=== PATIENT | female | born 1950 | race Caucasian/White ===

== ENCOUNTER → 2016-02-26 | Outpatient (CLI) | payer OTHER, MEDICARE ==
--- NOTE | 2016-02-26 18:00 | DX ---
DEXA Bone Mineral Densitometry Screening Clinical Indications: Vitamin D deficiency. Possible age related osteoporosis (E 55.9, M 81.0) on th e questionnaire, the patient also reports family history of osteoporosis. She takes supplemental calc ium of 300-500 mg per day along with vitamin D supplement. She exercises regularly. Comparison: January 08, 2014 Technique: Bone Mineral Densitometry (BMD) by Dual Energy X-Ray Absorptiometry (DEXA) was performed utilizing the [employer] scanner. The lumbar spine was evaluated in the AP projection. The bilat eral hips and left forearm were evaluated in the AP projection. Vertebral fracture assessment was als o performed. AP Lumbar Spine: The L1, L2, L3 and L4 vertebral bodies are evaluated. BMD: 0.757 gm/cm2 T-score: -3.5 SD Z-score: -2.0 SD Since the previous study, there has been no significant change. AP Left Hip: BMD: 0.751 gm/cm2 T-score: -2.0 SD Z-score: -0.9 SD Since the previous study, there has been no significant change. AP Right Hip: BMD: 0.738 gm/cm2 T-score: -2.1 SD Z-score: -1.0 SD Since the previous study, there has been there has been mild to moderate decrease in bone mineral den sity by 6.9%. AP Left Forearm: BMD: 0.544 gm/cm2 T-score: -3.8 SD Z-score: -2.4 SD Since the previous study, there has been significant decrease in bone mineral density by 10.2%. Vertebral Fracture Assessment: No significant fracture deformity. The ten year risk for any major osteoporotic fracture is 20.2% and for a hip fracture is 2.0%. Conclusion: Considering the lowest measured site, the patient is osteoporotic with the greatest degre e in the forearm. Any bone loss in this patient is probably related to aging or estrogen deficiency. Preferential bone loss in the forearm does raise the possibility of underlying hyperparathyroidism. Additionally, there has been significant decrease in bone mineral density since the prior study of t he right hip and left forearm. Recommendations: To prevent osteoporosis and to promote bone density, consider the followin. Consider checking patient's PTH and serum calcium and phosphorus levels for possible hyperparathyr oidism. 2. Pursue a regular regimen of weightbearing and muscle-strengthening exercises in order to reduce th e risk of falls and fracture (as tolerated by the patient's general medical condition). 3. Ensure that total daily calcium intake is at least 1500 mg (diet more important than supplements). 4. Check serum hydroxy vitamin D3 (normal >30ng/ml). 5. Ensure daily intake of vitamin D at least 800 international units. 6. Consider follow up DEXA scan in two years to assess the rate of bone loss in this patient. 7. If secondary causes are excluded, then consider initiating treatment with a bisphosphonate (such a s Fosamax, Actonel or Boniva). If the patient is unable to use an oral bisphosphonate, another agent such as IV bisphosphonates (Boniva or Reclast), teriparatide (Forteo), or a selective estrogen recept or modulator (Evista) might be considered.
== END ==
LOC: FIMAGING 14:44
PROVIDERS: ATTEND Internal Medicine
DX: Z13.820 Encounter for screening for osteoporosis (principal); M81.0 Age-related osteoporosis without current pathological fracture; Z82.62 Family history of osteoporosis

== ENCOUNTER → 2016-05-27 | Outpatient (CLI) | payer OTHER, MEDICARE | LOC: FIMAGING 15:51 | PROVIDERS: ATTEND Nurse Practitioner Family | DX: J20.9 Acute bronchitis, unspecified (principal) ==

== ENCOUNTER 2016-10-25 10:51 | Emergency (ER) | payer OTHER, MEDICARE ==
[2016-10-25 11:01] VITALS: RESP 18; TEMP 98.4
[2016-10-25 11:38] LABS: % IMMATURE GRANULYOCYTES 0.2 % (0.0-1.1); ABSOLUTE IMMATURE GRANULOCYTES 0.01 10^3/uL (0.00-0.10); ADD DIFF? NO; ADD MORPH? NO; ADD SCAN? NO; ATYPICAL LYMPHOCYTE FLAG 10 (0-99); FRAGMENT RBC FLAG 0 (0-99); HEMATOCRIT 45.4 % (38.0-47.0); HEMOGLOBIN 15.2 g/dL (12.6-16.3); LEFT SHIFT FLG 0 (0-99); LIPEMIA HEMOLYSIS FLAG 80 (0-99); MEAN CELL HEMOGLOBIN 30.8 pg (27.9-34.1); MEAN CELL HEMOGLOBIN CONCENTR. 33.5 g/dL (32.4-36.7); MEAN CELL VOLUME 92.1 fL (81.5-99.8); MEAN PLATELET VOLUME 10.2 fL (8.7-11.7); PLATELET CLUMPS FLAG 10 (0-99); PLATELET COUNT 248 10^3/uL (150-400); RED BLOOD CELL COUNT 4.93 10^6/uL (4.18-5.33); RED CELL DISTRIBUTION WIDTH 13.2 % (11.5-15.2)
[2016-10-25 11:45] LABS: ANION GAP 12 mEq/L (8-16); CALCIUM 10.4 mg/dL (8.5-10.4); CARBON DIOXIDE 25 mEq/l (22-31); CHLORIDE 101 mEq/L (97-110); CREATININE 0.7 mg/dL (0.6-1.0); GLOMERULAR FILTRATION RATE > 60; GLUCOSE 96 mg/dL (70-100); POTASSIUM 3.7 mEq/L (3.5-5.2); SODIUM 138 mEq/L (134-144)
[2016-10-25 11:55] LABS: TROPONIN I < 0.012 ng/mL (0.000-0.034)
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
--- NOTE | 2016-10-25 12:21 | CPEKG ---
Heart Rate: 68 RR Interval: 882 P-R Interval: 128 QRSD Interval: 90 QT Interval: 404 QTC Interval: 430 P [place]: 46 QRS [place]: 80 T Wave [place]: 22 EKG Severity - NORMAL ECG - EKG Impression: SINUS RHYTHM Electronically Signed By: Franklin Cloud 25-Oct-2016 12:25:12
[2016-10-25 13:48] VITALS: BP 109/73; PULSE 60; O2SAT 98
== END 2016-10-25 14:04 | disposition home or self-care (01) ==
DX: R20.2 Paresthesia of skin (principal)

== ENCOUNTER → 2016-12-29 | Outpatient (CLI) | payer OTHER, MEDICARE | LOC: BMCIMAGING 14:53 | PROVIDERS: ATTEND Internal Medicine | DX: Z12.31 Encounter for screening mammogram for malignant neoplasm of breast (principal) | CPT/HCPCS: G0202 ==

== ENCOUNTER → 2017-01-02 | Outpatient (CLI) | payer OTHER, MEDICARE | LOC: BMCIMAGING 16:33 | PROVIDERS: ATTEND Internal Medicine | DX: R07.81 Pleurodynia (principal) | CPT/HCPCS: 71101-PO ==

== ENCOUNTER 2017-02-05 09:12 | Emergency (ER) | payer OTHER, MEDICARE ==
[2017-02-05 09:18] VITALS: RESP 18; TEMP 98.1
--- NOTE | 2017-02-05 09:23 | EDPHY ---
H & P Stated Complaint: Twinging in R breast/chest area since yesterday Time Seen by Provider: 02/05/17 09:19 - Personal History Current Tetanus Diphtheria and Acellular Pertussis (TDAP): Yes - Medical/Surgical History Hx Asthma: No Hx Chronic Respiratory Disease: No Hx Diabetes: No Hx Cardiac Disease: No Hx Renal Disease: No Hx Cirrhosis: No Hx Alcoholism: No Hx HIV/AIDS: No Hx Splenectomy or Spleen Trauma: No Other PMH: TBI/neurologic issues in l leg/thigh/neck and back issues - Social History Smoking Status: Never smoked Constitutional: Initial Vital Signs Temperature (C) 36.7 C 02/05/17 09:13 Heart Rate 77 02/05/17 09:13 Respiratory Rate 18 02/05/17 09:13 Blood Pressure 132/78 H 02/05/17 09:13 O2 Sat (%) 98 02/05/17 09:13 O2 Delivery Mode Room Air Allergies/Adverse Reactions: prednisone Allergy (Mild, Verified 02/05/17 09:17) anxiety/insomnia Home Medications: Medication Instructions Recorded NK [No Known Home Meds] 10/25/16 Medical Decision Making - Diagnostics Imaging: I viewed and interpreted images myself ED Course/Re-evaluation: CHIEF COMPLAINT: Chest pain HISTORY OF PRESENT ILLNESS: The patient is a 66-year-old female presenting with dull chest pressure localized to the right side. The patient ate food yesterday and subsequently developed indigestion. She was belching all afternoon and evening yesterday. This morning she continued to have constant right sided chest pressure with occasional twinging that lasts a few seconds in duration. She denies nausea, arm numbness, dyspnea. The patient exercises regularly without exertional chest discomfort. The patient had an injury a few weeks ago from dismounting off her foam roller. She injured her sided. She denies dyspnea. REVIEW OF SYSTEMS: A 10 point review of systems was performed and is negative with the exception of the elements mentioned in the history of present illness. PHYSICAL EXAM: HR, BP, O2 Sat, RR. Temp noted General Appearance: Alert, well hydrated, appropriate, and non-toxic appearing. Head: Atraumatic without scalp tenderness or obvious injury Eyes: Pupils equal, round, reactive to light and accommodation, EOMI, no trauma , no injection. Ears: Clear bilaterally, no perforation, normal landmarks Nose: Atraumatic, no rhinorrhea, clear. Throat: There is no erythema or exudates, no lesions, normal tonsils, mucus membranes moist. Neck: Supple, 2+ carotid upstroke, nontender, no lymphadenopathy. Respiratory: No retractions, no distress, no wheezes, and no accessory muscle use. Lungs are clear to auscultation bilaterally. Cardiovascular: Regular rate and rhythm, no murmurs, rubs, or gallops. Bilateral carotid, radial, dorsalis pedis, and posterior tibial pulses intact. Good capillary refill all extremities. Gastrointestinal: Abdomen is soft, nontender, non-distended, no masses, no rebound, no guarding, no peritoneal signs. Musculoskeletal: Normal active ROM of all extremities, atraumatic. Neurological: Alert, appropriate, and interactive. The patient has normal DTRs and non-focal cranial nerves, motor, sensory, and cerebellar exam. Skin: No rashes, good turgor, no nodules on palpation. Past medical history: TBI Past surgical history: Denies Family history: Father with coronary artery disease, during bypass surgery. Social history: Nonsmoker. DIAGNOSTICS/PROCEDURES/CRITICAL CARE TIME: The 12 lead EKG was interpreted by myself. See hard copy and/or "tracemaster" electronic copy for interpretation: normal sinus rhythm, RBBB, no ischemia. Chest x-ray reviewed by me is normal. DIFFERENTIAL DIAGNOSIS: The differential diagnosis for the patient's chest pain included but was not limited to myocardial ischemia, pulmonary embolus, chest wall pain, pleural inflammation, and pulmonary infectious causes. MEDICAL DECISION MAKING: Patient presents with right sided chest pressure that has remained constant since onset with occasional twinging. Her chest pain is exacerbated with deep inhalation. She injured her side dismounting from her foam roller a few weeks ago. The patient does not have other cardiac risk factors as she has a normal examination. Her pain may be related to the injury. She has a family history of coronary artery disease. She is a non- smoker. The patient had a cardiac workup 3 years ago including a stress test 3 years ago. She was found to have mitral valve prolapse but was otherwise normal. Plan for cardiac workup including D-dimer, Troponin, BNP, BMP, CBC, and chest x-ray. Patient received a GI cocktail. The patient has a normal workup in the ED. Her troponin is sensitive based on the duration of her chest pain and is negative. D-dimer is normal. Lab work is otherwise unremarkable. Chest x-ray is negative for acute disease. The patient is safe for discharge home. She is found to be negative for MN at this time. I recommend she follow up with her senior linux systems engineer, Dr. Hinkle. - Data Points Laboratory Results: Laboratory Results 02/05/17 09:40 02/05/17 09:40 02/05/17 02/05/17 02/05/17 09:40 09:40 09:40 WBC 4.43 10^3/uL 10^3/uL (3.80-9.50) RBC 4.47 10^6/uL 10^6/uL (4.18-5.33) Hgb 14.2 g/dL g/dL (12.6-16.3) Hct 41.6 % % (38.0-47.0) MCV 93.1 fL fL (81.5-99.8) MCH 31.8 pg pg (27.9-34.1) MCHC 34.1 g/dL g/dL (32.4-36.7) RDW 12.9 % % (11.5-15.2) Plt Count 230 10^3/uL 10^3/uL (150-400) MPV 10.0 fL fL (8.7-11.7) Neut % (Auto) 68.8 % % (39.3-74.2) Lymph % (Auto) 21.0 % % (15.0-45.0) Andrew % (Auto) 6.8 % % (4.5-13.0) Eos % (Auto) 2.3 % % (0.6-7.6) Baso % (Auto) 0.9 % % (0.3-1.7) Nucleat RBC Rel Count 0.0 % % (0.0-0.2) Absolute Neuts (auto) 3.05 10^3/uL 10^3/uL (1.70-6.50) Absolute Lymphs (auto) 0.93 10^3/uL L 10^3/uL (1.00-3.00) Absolute Monos (auto) 0.30 10^3/uL 10^3/uL (0.30-0.80) Absolute Eos (auto) 0.10 10^3/uL 10^3/uL (0.03-0.40) Absolute Basos (auto) 0.04 10^3/uL 10^3/uL (0.02-0.10) Absolute Nucleated RBC 0.00 10^3/uL 10^3/uL (0-0.01) Immature Gran % 0.2 % % (0.0-1.1) Immature Gran # 0.01 10^3/uL 10^3/uL (0.00-0.10) D-Dimer 0.36 ug/mLFEU ug/mLFEU (0.00-0.50) Sodium 141 mEq/L mEq/L (134-144) Potassium 3.9 mEq/L mEq/L (3.5-5.2) Chloride 106 mEq/L mEq/L (97-110) Carbon Dioxide 23 mEq/l mEq/l (22-31) Anion Gap 12 mEq/L mEq/L (8-16) BUN 10 mg/dL mg/dL (7-23) Creatinine 0.6 mg/dL mg/dL (0.6-1.0) Estimated GFR > 60 Glucose 99 mg/dL mg/dL (70-100) Calcium 9.1 mg/dL mg/dL (8.5-10.4) Troponin I < 0.012 ng/mL ng/mL (0.000-0.034) NT-Pro-B Natriuret Pep 168 pg/mL H pg/mL (0-125) Medications Given: Discontinued Medications Al Hydroxide/Mg Hydroxide (Maalox Susp) 30 ml PO ONCE ONE Stop: 02/05/17 09:34 Last Admin: 02/05/17 09:50 Dose: 30 ml Hyoscyamine Sulfate (Levsin, Hyomax-Sl) 0.25 mg PO ONCE ONE Stop: 02/05/17 09:34 Last Admin: 02/05/17 09:50 Dose: 0.25 mg Lidocaine (Lidocaine 2% Viscous) 15 ml PO ONCE ONE Stop: 02/05/17 09:34 Last Admin: 02/05/17 09:50 Dose: 15 ml Departure - Departure Disposition: Home, Routine, Self-Care Clinical Impression: Musculoskeletal chest pain Condition: Good Instructions: Chest Pain (ED) Additional Instructions: I recommend you follow up with your senior linux systems engineer for formal evaluation. Return to the Emergency Department with new or worsening symptoms. Referrals: Iliana Horta MD [Primary Care Provider] - As per Instructions Mónica Hinkle MD [Medical Doctor] - As per Instructions Report Scribed for: Pete Delacruz Report Scribed by: Miriam Nails Date of Report: 02/05/17 Time of Report: 10:25
--- NOTE | 2017-02-05 09:28 | CPEKG ---
Heart Rate: 71 RR Interval: 845 P-R Interval: 132 QRSD Interval: 94 QT Interval: 404 QTC Interval: 439 P Floyd: 49 QRS Floyd: 81 T Wave [place]: 23 EKG Severity - BORDERLINE ECG - EKG Impression: SINUS RHYTHM EKG Impression: PROBABLE LEFT ATRIAL ABNORMALITY EKG Impression: BORDERLINE RIGHT AXIS DEVIATION Electronically Signed By: Pete Delacruz 07-Feb-2017 19:48:46
[2017-02-05] MEDS ORDERED: HYOSCYAMINE SULFATE 0.125 MG TAB PO ONE (09:33)
[2017-02-05] MEDS ORDERED: MAG HYDROX/AL HYDROX/SIMETH 30 ML UDCUP PO ONE (09:33)
[2017-02-05] MEDS ORDERED: LIDOCAINE 2% VISCOUS 15 ML UDCUP PO ONE (09:33)
[2017-02-05 09:50] LABS: PLATELET COUNT 230 10^3/uL (150-400)
[2017-02-05 11:00] VITALS: BP 112/69; PULSE 58; O2SAT 97
== END 2017-02-05 10:59 | disposition home or self-care (01) ==
DX: R07.89 Other chest pain (principal)

== ENCOUNTER → 2017-10-30 | Outpatient (CLI) | payer OTHER, MEDICARE | LOC: BHFA 15:00 | PROVIDERS: ATTEND Internal Medicine Interventional Cardiology | DX: I34.0 Nonrheumatic mitral (valve) insufficiency (principal); I47.1 Supraventricular tachycardia ==

== ENCOUNTER → 2018-01-30 | Outpatient (CLI) | payer OTHER, MEDICARE | LOC: FIMAGING 15:52 | PROVIDERS: ATTEND Internal Medicine | DX: Z12.31 Encounter for screening mammogram for malignant neoplasm of breast (principal) ==